=== PATIENT | female | born 1995 | race Two or more races ===

== ENCOUNTER 2021-12-15 11:00 | Emergency (ER) | payer OTHER, SELFPAY ==
--- NOTE | ~2021-12-15 | US_ITS ---
EXAMINATION: US OBSTETRICAL ULTRASOUND CLINICAL INFORMATION: Abnormal vaginal discharge. COMPARISON: None. LMP: 10/22/2021. Gestational age by maternal dates is 7 weeks 5 days. Estimated date of delivery by maternal dates is 07/29/2022. TECHNIQUE: Transabdominal and endovaginal sonography is performed. FINDINGS: Single live intrauterine gestation noted. Yolk sac present. Norcatur-rump length of 1.74 cm yields estimated menstrual age 8weeks 2 days. Cardiac activity is observed at 163 BPM. No adjacent retrochorionic fluid collections. MATERNAL ADNEXA: The right maternal ovary measures 3.1 x 2.6 x 2.7 cm. Left ovary is not seen. There is no significant maternal adnexal mass. No maternal pelvic ascites. US/US OB <= 14 weeks fetus IMPRESSION: 1. Single intrauterine gestation with ultrasound gestational age of 8 weeks +/- 2 days. 2. Estimated date of delivery is 07/25/2022 +/- 4 days. 3. No maternal adnexal mass or pelvic ascites.
[2021-12-15 11:03] VITALS: BP 149/89; PULSE 77; RESP 18; TEMP 36.7; O2SAT 100; BMI 53.5
[2021-12-15 14:35] LABS: MANUAL DIFF FLAG NO
[2021-12-15 14:41] LABS: Basophils Percent Auto 0.4 % (0-2); Eosinophils Percent Auto 0.3 % (0-4); Hematocrit 38.5 % (37.0-47.0); Hemoglobin 12.6 g/dl (12.0-16.0); Imm Gran Abs Auto 0.03 X10*3/uL (0.00-0.03); Imm Gran Pct Auto 0.3 % (0.0-0.4); Lymphocytes Absolute Auto 1.3 X10*3/uL (1.2-4.9); Lymphocytes Percent Auto 13.3 % (20-40); Mean Corpuscular HGB Conc 32.7 g/dl (31.0-35.0); Mean Corpuscular Volume 88.7 fL (80.0-98.0); Mean Platelet Volume 9.5 fL (9.4-12.3); Monocytes Absolute Auto 0.7 X10*3/uL (0.1-1.2); Monocytes Percent Auto 6.4 % (2-11); Neutrophils Percent Auto 79.3 % (45-73); Platelet Count 314 X10*3/uL (160-400); Red Blood Count 4.34 X10*6/uL (4.20-5.50); Red Cell Distribution Width 13.4 % (11.0-16.0); White Blood Count 10.1 X10*3/uL (4.8-10.8)
[2021-12-15 14:55] LABS: Anion Gap 14 (12-20); Blood Urea Nitrogen 11 mg/dL (9-16); Calcium 8.5 mg/dL (8.4-10.2); Carbon Dioxide 21 mmol/L (22-29); Chloride 105 mmol/L (96-108); Creatinine Clr Calc Pharmacy 214.8; Estimated Glomerular Filt Rate > 60; Glucose Random 89 mg/dL (60-115); Potassium 4.6 mmol/L (3.3-5.1); Sodium 135 mmol/L (135-145)
--- NOTE | 2021-12-15 15:21 | ED.PREGNANCY ---
HPI - General Chief complaint: General Medical Stated complaint: sent by ogbyn/possible infection Time Seen by Provider: 12/15/21 11:01 Source: patient Mode of arrival: ambulatory Limitations: no limitations History of Present Illness HPI Narrative: 26-year-old female who is approximately 8 weeks confirmed by ultrasound at [facility] approximately 2 weeks ago where they reported that she was 6 weeks she is currently on progesterone suppositories and her due date is July 28, 2022 her last menstrual period was 10/22/2021 has a follow-up appointment approximately 2-3 weeks with [facility] presenting to the ED with complaints of abnormal vaginal discharge ?cottage cheese like? for the past few days worse today. She also reports that she is no longer having any nausea, or breast soreness and she is concerned about this therefore her OBGYN/customer service specialist told her to come here to have her fetus checked. She denies any fevers, chills, dizziness, headaches, neck pain/stiffness, trouble swallowing or breathing, chest pain or shortness of breath, dyspnea on exertion, orthopnea, palpitations, paresthesias, abdominal pain, back pain, flank pain, dysuria, hematuria, pain, diarrhea, constipation, rashes, lesions to the vaginal area, thoughts of STDs or any other symptoms complaints or concerns at this time. MD Complaint: vaginal discharge Onset (ago): day(s) (Past few days worse today) Pain Consistency: constant Location: pelvis Severity: moderate Associated symptoms: denies other symptoms Vaginal discharge: other (White cottage cheese like discharge) Vaginal bleeding: none and light Date of Last Menstrual Period: 10/22/20 Patient : Yes Expected Date of Delivery: 07/28/22 Number of Weeks : 8 OB History - Current : no complications OB History - Previous Pregnancies: no complications care: followed by OB and previous ultrasound confirms IUP Related Data : 1 Para: 0 Total number of abortions (spontaneous and elective): 0 Previous Rx's Medication Instructions Recorded miconazole nitrate 1,200 mg-2 % See Rx Instructions vaginal 12/15/21 vaginal kit .COMPLEX Candidiasis #1 ea Allergies Allergy/AdvReac Type Severity Reaction Status Date / Time bacitracin Allergy Intermediate Rash Verified 12/15/21 11:03 [From Neosporin ([id number])] neomycin Allergy Intermediate Rash Verified 12/15/21 11:03 [From Neosporin ([id number])] polymyxin B Allergy Intermediate Rash Verified 12/15/21 11:03 [From Neosporin ([id number])] Review of Systems Review of Systems: Constitutional : No Fever, No Chills ENT/Mouth : No sore throat, No Rhinorrhea Eyes: No Eye Pain, No Redness Cardiovascular : No Chest Pain, No SOB Respiratory : No Cough, No Sputum, No Wheezing Gastrointestinal : No Nausea, No Vomiting, No Diarrhea, positive abdominal pain, Genitourinary : + abnormal vaginal discharge, No irregular bleeding, No Dysuria, No Urinary Frequency, No pelvic pain, No vaginal discharge, no hematuria Musculoskeletal : No Myalgias Skin : No rash Neuro : No Weakness, No Headache Psych : No Anxiety/Panic, No Depression Heme/Lymph: No bruising, No Lymphadenopathy Endocrine : No Polyuria, No Polydipsia Yes all other systems are reviewed and are negative [facility] Past Medical History Attestation statement: The following information was validated with the patient. Source: old records reviewed, obtained from family and nursing notes reviewed : 1 Para: 0 Total number of abortions (spontaneous and elective): 0 Date of Last Menstrual Period: 10/22/20 Social History Social History Advance Directives: No Advance Directives Information Provided: No Patient : Yes Physical Exam Vital Signs: Vital Signs: Last Vital Signs Temp 99.2 F 12/15/21 15:53 Pulse 73 12/15/21 15:53 Resp 17 12/15/21 15:53 BP 124/66 12/15/21 15:53 Pulse Ox 100 12/15/21 15:53 O2 Del Method 12/15/21 15:53 BMI result Body Mass Index 53.5 vital signs have been reviewed as normal and appeared to be correct. Blood pressure 149/89. Heart rate normal. Respiration rate normal. Temperature normal. Oxygen saturation normal. Appearance: Alert. Oriented X3. No acute distress. Head: Normal external exam. Normocephalic. Atraumatic. Eyes: PERRLA. EOMI. Conjunctiva and sclera normal. Eyelids normal. ENT:Pharynx normal. Uvula midline. Moist mucous membranes. No trismus noted. No drooling noted. No muffled voice noted. Neck: Normal inspection. Neck supple. FROM. No adenopathy. Thyroid Normal. No meningeal signs. No neck mass noted. CVS: Normal heart rate and rhythm. Heart sound normal. No murmurs noted. Pulses normal throughout. Respiratory: No respiratory distress. Painless inspiration. Breath sounds normal. No wheezes/rales/rhonchi noted. Chest nontender. No accessory muscle usage noted or decreased air movement noted. Abdomen: Soft and nontender. Bowel sounds normal in all 4 quadrants. No distention noted. No organomegaly noted. No visible injury noted. : Supervised by TAMIR Rocha. Normal external appearance of urethra. No lesions/lacerations or tenderness noted. Speculum exam normal appearance/palpation of vagina normal. On exam patient is noted to have valvular erythema/edema with no excoriation noted on my exam. Although she is noted to have cottage cheese like nonodorous discharge consistent with Rosy vaginitis. Otherwise no vaginal erythema. No foreign bodies noted. No vaginal laceration/lesions or active bleeding noted. No tissue present in vagina. No vaginal mass noted. No vaginal swelling noted. No vaginal tenderness noted. Normal appearance of cervix. Normal palpation of cervix. Cervical os is closed. No cervical lesion/mass. No Bartholin cyst noted. No cervical motion tenderness noted. Negative chandelier sign. Normal bimanual exam. Uterine size normal. Bladder normal to palpation. Uterine consistency normal. Normal cervical palpation. Uterine mobility normal. Uterine shape normal. Normal adnexa. Normal rectovaginal exam. Back: No CVA tenderness. Full range of motion noted. Skin: Skin warm and dry. Normal skin color. Normal skin turgor. No rashes/lesions/lacerations noted. Extremities: No lower extremity edema. Extremities exhibit normal range of motion. Extremities nontender. Neuro: Oriented X 3. No motor deficit. No sensory deficit. Reflexes normal. Course Course Course Narrative: 13:40pm - 26-year-old female who is approximately 8 weeks confirmed by ultrasound at [facility] approximately 2 weeks ago where they reported that she was 6 weeks she is currently on progesterone suppositories and her due date is July 28, 2022 her last menstrual period was 10/22/2021 has a follow-up appointment approximately 2-3 weeks with [facility] presenting to the ED with complaints of abnormal vaginal discharge ?cottage cheese like? for the past few days worse today. She also reports that she is no longer having any nausea, or breast soreness and she is concerned about this therefore her OBGYN/customer service specialist told her to come here to have her fetus checked. Will obtain labs, serum quant, UA, gonorrhea/chlamydia swab, bacterial vaginosis swab, yeast swab, Trichomonas swab And a less than 14 weeks gestational ultrasound re-evaluate Reevaluation(s) Reevaluation #1: - Labs returned and all labs within normal limits. Serum quant appropriately elevated. Pending gonorrhea/chlamydia/bacterial vaginosis/Trichomonas and yeast swab at this time. - ultrasound reveals single intrauterine gestation with ultrasound gestation age of 8 weeks and minus or +2 days. Estimated due date is 07/25/2022 with +/-4 days. No maternal adnexal mass or pelvic ascites. - awaiting UA at this time. - Patient will be discharged with treatment for yeast infection instructions to follow-up with OBGYN. Patient understands agrees with this plan. Time: 16:18 MDM - OB/Uterine Contractions Medical Records Attestation: I reviewed the patient's medical records. Lab Data Attestation: I reviewed the patient's lab results. Result diagrams: 12/15/21 14:29 12/15/21 14:30 Labs: Lab Results 12/15/21 12/15/21 12/15/21 Range/Units 14:29 14:30 14:30 WBC 10.1 (4.8-10.8) X10*3/uL RBC 4.34 (4.20-5.50) X10*6/uL Hgb 12.6 (12.0-16.0) g/dl Hct 38.5 (37.0-47.0) % MCV 88.7 (80.0-98.0) fL MCH 29.0 (27.0-33.0) pg MCHC 32.7 (31.0-35.0) g/dl RDW 13.4 (11.0-16.0) % Plt Count 314 (160-400) X10*3/uL MPV 9.5 (9.4-12.3) fL Immature Gran % (Auto) 0.3 (0.0-0.4) % Neut % (Auto) 79.3 H (45-73) % Lymph % (Auto) 13.3 L (20-40) % Bollinger % (Auto) 6.4 (2-11) % Eos % (Auto) 0.3 (0-4) % Baso % (Auto) 0.4 (0-2) % Lymph # (Auto) 1.3 (1.2-4.9) X10*3/uL Bollinger # (Auto) 0.7 (0.1-1.2) X10*3/uL Eos # (Auto) 0.0 (0.0-0.4) X10*3/uL Baso # (Auto) 0.0 (0.0-0.2) X10*3/uL Abs Immat Gran (auto) 0.03 (0.00-0.03) X10*3/uL Absolute Neuts (auto) 8.0 (2.0-8.3) x10*3/uL Absolute Nucleated RBC 0.000 (0.0-0.012) X10*3/uL Nucleated RBC % (auto) 0.0 (0.0-0.2) /100WBC Sodium 135 (135-145) mmol/L Potassium 4.6 (3.3-5.1) mmol/L Chloride 105 (96-108) mmol/L Carbon Dioxide 21 L (22-29) mmol/L Anion Gap 14 (12-20) BUN 11 (9-16) mg/dL Creatinine 0.55 (0.5-1.4) mg/dL Estim Creat Clear Calc 214.8 Estimated GFR > 60 Random Glucose 89 (60-115) mg/dL Calcium 8.5 (8.4-10.2) mg/dL Beta HCG, Quant 71092 mIU/mL Imaging Data Ultrasound less than 14 weeks: Attestation: I personally reviewed and interpreted this imaging study as follows: Radiologist's impression: LMP: 10/22/2021. Gestational age by maternal dates is 7 weeks 5 days. Estimated date of delivery by maternal dates is 07/29/2022. TECHNIQUE: Transabdominal and endovaginal sonography is performed. ? FINDINGS: Single live intrauterine gestation noted. Yolk sac present. Di Giorgio-rump length of 1.74 cm yields estimated menstrual age 8weeks 2 days. Cardiac activity is observed at 163 BPM. No adjacent retrochorionic fluid collections. MATERNAL ADNEXA: ? ? The right maternal ovary measures 3.1 x 2.6 x 2.7 cm. Left ovary is not seen. There is no significant maternal adnexal mass.? No maternal pelvic ascites. US/US OB <= 14 weeks fetus IMPRESSION: 1. Single intrauterine gestation with ultrasound gestational age of? 8 weeks +/- 2 days. 2. Estimated date of delivery is 07/25/2022 +/- 4 days. 3. No maternal adnexal mass or pelvic ascites. Procedures Perimortem Number of Weeks : 8 Discharge Plan Discharge Clinical Impression: Vaginitis due to Rosy Patient Disposition: Home, Self-Care Additional Instructions: You have pending lab results if any are positive you will be contacted. Please follow-up with her OBGYN as scheduled. Return if you have any nausea/vomiting, abdominal pain, flank pain, abnormal vaginal bleeding or worsening vaginal discharge or any other symptoms complaints or concerns. Prescriptions: New miconazole nitrate 1,200-2 mg-% kit See Rx Instructions .ROUTE .COMPLEX Qty: 1 0RF Rx Instructions: place 1 insert into vagina at bedtime day 1;apply cream to area outside vagina twice daily for up to 7 days Referrals: Rashad Patel MD [Physician] - 2 weeks
[2021-12-15 15:53] VITALS: BP 124/66; PULSE 73; RESP 17; TEMP 37.3; O2SAT 100
[2021-12-15 16:10] LABS: Appearance Urine CLEAR; Color Urine YELLOW; Glucose Urine UA NEG (NEG); Leukocyte Esterase Urine NEG (NEG); Nitrite Urine NEG (NEG); Urine Blood NEG (NEG); Urine Ketones NEG (NEG); Urine Protein NEG (NEG-TRACE)
[2021-12-15 17:53] LABS: CT PCR NOT DETECTED (Not Detect.); NG PCR NOT DETECTED (Not Detect.)
[2021-12-16 15:13] LABS: BV Int Neg Control Negative (Negative); BV Int Pos Control Positive (Positive)
== END 2021-12-15 16:35 | disposition home or self-care (01) ==
PROVIDERS: Physician Assistant Medical; Emergency Provider Emergency Medicine
DX: O98.811 Other maternal infectious and parasitic diseases complicating pregnancy, first trimester (principal); Z3A.08 8 weeks gestation of pregnancy; Z20.822 Contact with and (suspected) exposure to COVID-19; Z79.899 Other long term (current) drug therapy
CPT/HCPCS: 36415; 76801; 80048; 81003; 84702; 85025; 87480; 87491; 87510; 87591; 87660; 99283; 99284

== ENCOUNTER 2025-03-08 08:02 | Outpatient (AMB) | payer OTHER, SELFPAY ==
--- NOTE | 2025-03-08 08:58 | MHC.OFFVISWM ---
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 53.0 Allergies bacitracin (From Neosporin ([id number])) Allergy (Intermediate, Verified 03/08/25 08:58) Rash neomycin (From Neosporin ([id number])) Allergy (Intermediate, Verified 03/08/25 08:58) Rash polymyxin B (From Neosporin ([id number])) Allergy (Intermediate, Verified 03/08/25 08:58) Rash Medication List - Last Reconciled 03/08/25 by Gabino Tineo MD sertraline 100 mg PO DAILY HPI 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 53.0: Details: Start time: 8.50am, End time: 9.35am ?I spent 40 minutes speaking with the patient on the phone plus an additional 5 minutes reviewing and updating records for a total of 45 minutes HPI Comments Details: Previous weight loss efforts: Wegovy 06/05 to 03/05: lost 80lbs, regained 40lbs Wakes up: 5am, Sleeps: 9pm Breakfast: 8-9am (eggs, yogurt), Oikos 30gr protein shake Lunch: 12pm (sandwich) Dinner: 5pm (rice, meat, salad) Snacks: 3-4pm (fruits, cheese), 7-8pm (ice cream) Exercise: none Beverages: Coffee (2 cups/ with creamer), Tea: none, Soda: rarely, Juice: none, ETOH: none PFSH Medical History (Updated 03/08/25 @ 09:01 by Gabino Tineo MD) Depression Female Reproductive History Menstrual Age of Menarche: 10 Telehealth Telehealth Telehealth Platform: Telephone Location of provider rendering services: practice address Location of patient: address on file Patient Identification confirmed using: Name, : Yes Telehealth method: voice only Patient verbally consented to treatment: Yes Patient verbally consented to billing insurance company: Yes Patient informed of any privacy concerns related to visit: Yes Minutes spent on Phone/Video with Pt.: 45 Assessment & Plan Assessment & Plan (1) Obesity, morbid, BMI 50 or higher: Code(s): E66.01 - Morbid (severe) obesity due to excess calories Category: Medical Plan: 1.? Plan for lap sleeve gastrectomy. If diaphragmatic or ventral hernias are present at time of surgery, these will be repaired laparoscopically as well. I emphasized the importance of close follow-up, adherence to instructions and good communication. The surgery does not replace the need to change your lifestlyle which is the cause of the obesity problem. The surgery provides the motivation to try again to change your lifestyle, it reduces the appetite and make the transition to a better lifestyle easier and doubles the amount of weight you would lose compared to doing the lifestyle change without the surgery. You will need to be on a liquid diet with protein shakes for 2 weeks before surgery to maximize weight loss and boost your nutritional status to recover better from surgery and also for the first two weeks after surgery to let the stomach heal before we introduce other foods. After the first 2 weeks we will introduce protein bars and soft foods like scrambled eggs, cottage cheese and yogurt and after the 6th week will introduce meat, fish and cooked vegetables in small amounts. Over time you should be able to eat everything in small amounts. Side effects like nausea, vomiting, heartburn or abdominal pain are not common in the practice unless you are not following in the practice. This operation requires lifetime commitment to following in our practice and communication with me. You will much less weight and experience side effects if you don?t communicate or not following in the practice. Complications are rare and in our practice is about 1/10 of the national average. However, you can develop bleeding that may require transfusion (hasn?t happened for year in the practice), you may from complications (we did not have any deaths in the practice) and infections. Infections are usually a result of breakdown in communication or not understanding or following directions correctly. They are difficult to treat, they can happen during the first 6 weeks, they may require to be in the hospital for weeks or even months, not being able to eat by mouth and you may have drains and surgeries to try and correct the issue. Other risks and complications include possible conversion to an open procedure, leaks, small bowel obstruction, blood clots, cardiac, or pulmonary complications, as intermodal dispatcher complications such as ulcers, insufficient weight loss and vitamin deficiencies. 2. Nutritional counseling. Start with one premade OIKOS protein shake (8oz of OIKOS and NOT the whole bottle) at 6am-8am, one protein bar (Celebrate protein bar, buy using the link I sent you) at 9am-11am, another premade OIKOS protein shake(8oz of OIKOS and NOT the whole bottlech) at 12pm-2pm, another Celebrate protein bar at 3pm-5pm, dinner at 6pm (12 forks of protein and 12 forks of salad/vegetables) and another HALF Celebrate protein bar at 8pm-9pm So you do 2 protein shakes, 2.5 protein bars and one meal per day. Meal to include lean meat (beef, fish, pork, turkey, chicken), or nepali yogurt, or egg whites, or beans with a salad with olive oil and fruits (berries, pears, apples, kiwi). Avoid salt, breads, potatoes, rice, pasta, desserts. 3. Each shake would be drunk slowly, like coffee in a period of 2 hours. 4. Cut each bar in 4 pieces and eat each piece in 30min ?to make each bar last 2 hours. 5. I emphasized the importance of measuring accurately the food portion and measure it when serving the food in plate 6. The meal portions include 12 full-size forks of meat and 12 full-size forks of salad. You always eat the meat portion but you can replace up to 6 forks for salad/vegetables with rice, potatoes or pasta, or a fruit ?if you like. The less you do it the better weight loss will be. 7. One full-size fork is what it can be scooped on the fork without falling aside and not what can be bit with the fork. Use regular forks like those you find in a typical restaurant. 8.? Please buy the body composition scale we discussed and send me weight measurements as soon as possible and then once a week. Always include your diet and exercise plan. 9. Start walking outside daily, tracking calories with a goal of 300 calories per day, daily. Goal is to burn 2000 calories per week on exercise, which means either 300 calories daily, or 400 calories 5 days per week, or 500 calories 4 days per week, or 650 calories 3 days per week. 10. The best choice would be to purchase a stationary bike at home that can track calories. Let me know if you do so I can give you an exercise plan. 11.?It is important of avoiding and for at least 18 months postoperatively and has been discussed at the infosession. 12. Goal is to lose at least 1.5-2lbs per week 13. Goal to lose 10% of your weight before surgery, which is about 30lbs. Ultimate weight goal: 270lbs before surgery 14. Please follow the diet plan exactly without any change. If you don't like something about the plan or you feel hungry you need to communicate with me so I can help you revise the plan. You should not change the plan yourself 15. To be scheduled for EGD to assess the stomach's anatomy. The possibility of biopsies was discussed. Patient needs to avoid use of NSAIDs and aspirin for 1 week prior to EGD. You must be on liquids only the day before your endoscopy. Risks of perforation and bleeding was discussed with the patient. This will be an outpatient procedure with IV sedation. Orders: Orders Lipid Panel Today E28.2 - Polycystic ovarian syndrome, E66.01 - Morbid (severe) obesity due to excess calories Comprehensive Met. Panel Today E28.2 - Polycystic ovarian syndrome, E66.01 - Morbid (severe) obesity due to excess calories Zinc Today E28.2 - Polycystic ovarian syndrome, E66.01 - Morbid (severe) obesity due to excess calories TSH reflex Free T4 Today E28.2 - Polycystic ovarian syndrome, E66.01 - Morbid (severe) obesity due to excess calories Ferritin Today E28.2 - Polycystic ovarian syndrome, E66.01 - Morbid (severe) obesity due to excess calories Vitamin D 25-OH Total Today E28.2 - Polycystic ovarian syndrome, E66.01 - Morbid (severe) obesity due to excess calories US abdomen comp w elastography Today E28.2 - Polycystic ovarian syndrome, E66.01 - Morbid (severe) obesity due to excess calories XR chest 2V Today E28.2 - Polycystic ovarian syndrome, E66.01 - Morbid (severe) obesity due to excess calories ECG 12 lead EKG Today E28.2 - Polycystic ovarian syndrome, E66.01 - Morbid (severe) obesity due to excess calories FL upper GI w air Today E28.2 - Polycystic ovarian syndrome, E66.01 - Morbid (severe) obesity due to excess calories Insulin Today E28.2 - Polycystic ovarian syndrome, E66.01 - Morbid (severe) obesity due to excess calories Hemoglobin A1c Today E28.2 - Polycystic ovarian syndrome, E66.01 - Morbid (severe) obesity due to excess calories H Pylori Breath Test Today E28.2 - Polycystic ovarian syndrome, E66.01 - Morbid (severe) obesity due to excess calories Complete Blood Count Auto Diff Today E28.2 - Polycystic ovarian syndrome, E66.01 - Morbid (severe) obesity due to excess calories IRON PROFILE Today E28.2 - Polycystic ovarian syndrome, E66.01 - Morbid (severe) obesity due to excess calories Vitamin B12 and Folate Today E28.2 - Polycystic ovarian syndrome, E66.01 - Morbid (severe) obesity due to excess calories C Reactive Protein Today E28.2 - Polycystic ovarian syndrome, E66.01 - Morbid (severe) obesity due to excess calories Vitamin B1 Today E28.2 - Polycystic ovarian syndrome, E66.01 - Morbid (severe) obesity due to excess calories Vitamin A Today E28.2 - Polycystic ovarian syndrome, E66.01 - Morbid (severe) obesity due to excess calories Referrals Behavioral Health Referral E28.2 - Polycystic ovarian syndrome, E66.01 - Morbid (severe) obesity due to excess calories Nutrition/Dietitian Referral E28.2 - Polycystic ovarian syndrome, E66.01 - Morbid (severe) obesity due to excess calories
[2025-03-08 09:09] VITALS: BMI 53.0
== END 2025-03-08 09:35 | disposition home or self-care (01) ==
LOC: HO.HBS 08:02
PROVIDERS: PCP Internal Medicine; Visit Provider Surgery
DX: E66.01 Morbid (severe) obesity due to excess calories (principal)
CPT/HCPCS: 99204